=== PATIENT | female | born 1975 | race Two or more races ===

== ENCOUNTER 2025-10-05 10:55 | Emergency (ER) | payer OTHER ==
[2025-10-05 11:53] VITALS: BP 96/57; PULSE 78; RESP 20; TEMP 97.4; O2SAT 96
--- NOTE | 2025-10-05 12:04 | ED.PDOC ---
Back pain HPI HPI Comments 50 y/o F, presents to the ED for CC of back pain. Patient states she has been experiencing left-lower back pain onset, x2days ago. Patient reports, pain to radiate down her left thigh and left leg. Patient denies any trauma, injury, or fall. No other symptoms or modifying factors are present at this time. Chief Complaint: Back Pain Time Seen by MD: 11:50 Reviewed Notes: Nurses Notes, Medications, Allergies Allergies: Coded Allergies: NO KNOWN ALLERGIES (Unverified , 10/05/25) Home Meds Active Scripts Diclofenac Potassium (Diclofenac Potassium) 50 Mg Tab, 1 TAB PO TIDP for 10 Days, #30 TAB Prov:GUEVARA LISA MD 10/05/25 Cyclobenzaprine Hcl (Cyclobenzaprine Hcl) 10 Mg Tab, 10 MG PO TID for 10 Days, #30 TAB Prov:GUEVARA LISA MD 10/05/25 Information Source: Patient Mode of Arrival: Ambulatory Timing: Days Duration: Since onset Location of Back pain: (L) Lower back Radiates to: Anterior: (L) Thigh Severity: Moderate Prehospital treatment: None Onset: Spontaneous History of: None Associated signs and symptoms: None Past Medical History PAST MEDICAL HISTORY: Denies Surgical History: Denies all surgeries TYPE COPY EXAMINER History: Denies all TYPE COPY EXAMINER Hx Family History Family History: Unknown Social History Smoker: Non-Smoker Alcohol: Denies ETOH Use Drugs: Denies Drug Use Lives In: Home Constitutional: denies: chills, diaphoresis, fatigue, fever, malaise, sweats, weakness, others EENTM: denies: blurred vision, double vision, ear bleeding, ear discharge, ear drainage, ear pain, ear ringing, eye pain, eye redness, hearing loss, mouth pain, mouth swelling, nasal discharge, nose bleeding, nose congestion, nose pain, photophobia, tearing, throat pain, throat swelling, voice changes, others Respiratory: denies: cough, hemoptysis, orthopnea, SOB at rest, shortness of breath, SOB with excertion, stridor, wheezing, others Cardiovascular: denies: chest pain, dizzy spells, diaphoresis, Dyspnea on exertion, edema, irregular heart beat, left arm pain, lightheadedness, palpitations, PND, syncope, others Gastrointestinal: denies: abdomen distended, abdominal pain, blood streaked bowels, constipated, diarrhea, dysphagia, difficulty swallowing, hematemesis, melena, nausea, poor appetite, poor fluid intake, rectal bleeding, rectal pain, vomiting, others Genitourinary: denies: abnormal vagina bleeding, burning, dyspareunia, dysuria, flank pain, frequency, hematuria, incontinence, pain, , vagina disc harge, urgency, others Neurological: denies: dizziness, fainting, headache, left sided numbness, left sided weakness, numbness, paresthesia, pre-existing deficit, right sided numbness, right sided weakness, seizure, speech problems, tingling, tremors, weakness, others Musculoskeletal: reports: back pain; denies: gout, joint pain, joint swelling, muscle pain, muscle stiffness, neck pain, others Integumetry: denies: bruises, change in color, change in hair/nails, dryness, laceration, lesions, lumps, rash, wounds, others Allergic/Immunocompromised: denies: Difficulty Healing, Frequent Infections, Hives, Itching, others Hematologic/Lymphatic: denies: anemia, blood clots, easy bleeding, easy bruising, swollen glands, others Endocrine: denies: excessive hunger, excessive sweating, excessive thirst, excessive urination, flushing, intolerance to cold, intolerance to heat, unexplained weight gain, unexplained weight loss, others Psychiatric: denies: anxiety, bipolar disorder, depression, hopeless, panic disorder, schizophrenia, sleepless, suicidal, others All Other Systems: Reviewed and Negative Physical Exam General Appearance: Moderate Distress, Obese HEENT: Normal ENT Inspection, PERRL/EOMI Neck: Full Range of Motion, Non-Tender, Normal, Normal Inspection Respiratory: Chest Non-Tender, Lungs Clear, No Accessory Muscle Use, No Respiratory Distress, Normal Breath Sounds Cardiovascular: No Edema, No JVD, No Murmur, No Gallop, Normal Peripheral Pulses, Regular Rate/Rhythm Breast Exam: Deferred Gastrointestinal: No Organomegaly, Non Tender, No Pulsatile Mass, Normal Bowel Sounds, Soft Genitalia: Deferred Pelvic: Deferred Rectal: Deferred Extremities: No calf tenderness, Normal capillary refill, Normal inspection, Normal range of motion, Non-tender, No pedal edema, Other (Leg straight leg elevation positive) Neurologic: Alert, chicken picker II-XII nml as Tested, No Motor Deficits, Normal Affect, Normal Mood, No Sensory Deficits Cerebellar Function: Normal Reflexes: Normal Skin: Dry, Normal Color, Warm Peripheral Pulses: 1+ carotid (R), 1+ carotid (L) Lymphatic: No Adenopathy Was a procedure done? Was a procedure done?: No Back Pain Differential Dx Differential Diagnosis: DJD, Musculoskeletal Pain, Strain X-Ray, Labs, Meds, VS Vital Signs Date Time Temp Pulse Resp B/P (MAP) Pulse Ox O2 Delivery O2 Flow Rate FiO2 10/05/25 11:53 97.4 78 20 96/57 (70) 96 97.4 10/05/25 10:59 97.2 83 18 97/63 97 97.2 Current Medications Medications (Trade) Dose Ordered Sig/Gallo Route Start Time Stop Time Status Last Admin Ketorolac Tromethamine (Toradol Injection) 60 mg ONCE ONCE IM 10/05/25 13:45 10/05/25 13:46 DC 10/05/25 13:49 X-Ray, Labs, Meds, VS Comment Course in a fast track even full patient complaining of back pain with the radiation to the left leg for two days patient denies history of back pain Patient we receive toradol IM then be discharged home to hold off for their PCP Time of 1ST Reevaluation: 12:20 Reevaluation 1ST: Unchanged Time of 2ND Reevaluation: 13:35 Reevaluation 2ND: Unchanged Consultation: PCP Patient Education/Counseling: Diagnosis, Treatment, Prognosis, Need For Follow Up Family Education/Counseling: Diagnosis, Treatment, Prognosis, Need For Follow Up, No Family Present SEPSIS Sepsis Screen Date sepsis recognized/suspect: Oct 05, 2025 Time Sepsis recognized/suspect: 1157 Recent Procedure: No On Antibiotic Therapy: No Respiratory Rate >20: No Heart Rate >90: No Temp<36 C (96.8 F) or >38.3 C: No SBP <90 or MAP <65 mmHG: No New Acute Mental Status Change: No Is the patient on CPAP, BIPAP,: No Vital Signs Date Time Temp Pulse Resp B/P (MAP) Pulse Ox O2 Delivery O2 Flow Rate FiO2 10/05/25 11:53 97.4 78 20 96/57 (70) 96 97.4 10/05/25 10:59 97.2 83 18 97/63 97 97.2 Medications Medications Dose Ordered Sig/Gallo Route Start Time Stop Time Status Last Admin Dose Admin Ketorolac Tromethamine 60 mg ONCE ONCE IM 10/05/25 13:45 10/05/25 13:46 DC 10/05/25 13:49 Departure 1 Departure Time of Disposition: 13:36 Impression: Primary Impression: Lumbar radiculopathy Additional Impression: Musculoskeletal pain Disposition: 01 HOME / SELF CARE / HOMELESS Condition: Fair Additional Instructions: Local heat and follow up with her PCP e-Prescriptions Diclofenac Potassium (Diclofenac Potassium) 50 Mg Tab 1 TAB PO TIDP for 10 Days, #30 TAB Prov: GUEVARA LISA MD 10/05/25 Cyclobenzaprine Hcl (Cyclobenzaprine Hcl) 10 Mg Tab 10 MG PO TID for 10 Days, #30 TAB Prov: GUEVARA LISA MD 10/05/25 Discharged With: Self Critical Care Note Critical Care Time?: No Stability Stability form required: No Heart Score Heart Score: Heart Score Response (Comments) Value History N/A 0 EKG N/A 0 Age 45-64 1 Risk Factors No known risk factors 0 Troponin N/A 0 Total 1 I personally scribed for GUEVARA LISA MD ([email or web address]) on 10/05/25 at 12:04. Electronically submitted by Cristy Melo ([email or web address]). GUEVARA LISA MD Oct 05, 2025 12:04
[2025-10-05] MEDS ORDERED: CYCL-839 PO (13:40)
[2025-10-05] MEDS ORDERED: DICL50TA2 PO (13:40)
[2025-10-05] MEDS: KETOROLAC TROMETH 60MG/2ML VIAL IM ONE (13:49)
== END 2025-10-05 14:54 | disposition home or self-care (01) ==
LOC: ER 10:55
DX: M54.16 Radiculopathy, lumbar region (principal); M79.18 Myalgia, other site; Z79.899 Other long term (current) drug therapy
CPT/HCPCS: 96372; 99283; J1885

== ENCOUNTER 2025-10-06 13:28 | Emergency (ER) | payer OTHER ==
[~2025-10-06] VITALS: Ht 165.1 cm; Wt 104.8 kg
[~2025-10-06 13:28] MED LIST: CYCL-839 PO; DICL50TA2 PO
--- NOTE | 2025-10-06 14:43 | ED.PDOC ---
Back pain HPI HPI Comments This is a 50 year old female presenting to the ED with chief complaint of back pain. Patient reports that she has been experiencing persistent lower back pain that radiates down her left leg for the past 3 days. Patient relays that she was seen yesterday and the medication she had been provided in the ED helped with her pain greatly. Patient states she is requesting the same medication today. Patient notes she has history of chronic lower back pain. Patient denies any numbness, weakness, fall, or injury. Chief Complaint: Back Pain Time Seen by MD: 14:41 Reviewed Notes: Nurses Notes, Medications, Allergies Allergies: Coded Allergies: NO KNOWN ALLERGIES (Unverified , 10/05/25) Home Meds Active Scripts Diclofenac Potassium (Diclofenac Potassium) 50 Mg Tab, 1 TAB PO TIDP for 10 Days, #30 TAB Prov:GUEVARA LISA MD 10/05/25 Cyclobenzaprine Hcl (Cyclobenzaprine Hcl) 10 Mg Tab, 10 MG PO TID for 10 Days, #30 TAB Prov:GUEVARA LISA MD 10/05/25 Information Source: Patient Mode of Arrival: Ambulatory Timing: Days Duration: Since onset Location of Back pain: (B) Lower back Radiates to: Posterior: (L) Thigh Severity: Moderate Prehospital treatment: None Quality: Aching Onset: Spontaneous History of: Chronic Back Pain Past Medical History Past Medical History (Other): Chronic back pain Surgical History: Denies all surgeries BIOLOGY INTERNSHIP History: Denies all BIOLOGY INTERNSHIP Hx Family History Family History: Reviewed,noncontributory to illness, Unknown Social History Smoker: Non-Smoker Alcohol: Denies ETOH Use Drugs: Denies Drug Use Lives In: Home Constitutional: denies: chills, diaphoresis, fatigue, fever, malaise, sweats, weakness, others EENTM: denies: blurred vision, double vision, ear bleeding, ear discharge, ear drainage, ear pain, ear ringing, eye pain, eye redness, hearing loss, mouth pain, mouth swelling, nasal discharge, nose bleeding, nose congestion, nose pain, photophobia, tearing, throat pain, throat swelling, voice changes, others Respiratory: denies: cough, hemoptysis, orthopnea, SOB at rest, shortness of breath, SOB with excertion, stridor, wheezing, others Cardiovascular: denies: chest pain, dizzy spells, diaphoresis, Dyspnea on exertion, edema, irregular heart beat, left arm pain, lightheadedness, palpitations, PND, syncope, others Gastrointestinal: denies: abdomen distended, abdominal pain, blood streaked bowels, constipated, diarrhea, dysphagia, difficulty swallowing, hematemesis, melena, nausea, poor appetite, poor fluid intake, rectal bleeding, rectal pain, vomiting, others Genitourinary: denies: abnormal vagina bleeding, burning, dyspareunia, dysuria, flank pain, frequency, hematuria, incontinence, pain, , vagina discha rge, urgency, others Neurological: denies: dizziness, fainting, headache, left sided numbness, left sided weakness, numbness, paresthesia, pre-existing deficit, right sided numbness, right sided weakness, seizure, speech problems, tingling, tremors, weakness, others Musculoskeletal: reports: back pain; denies: gout, joint pain, joint swelling, muscle pain, muscle stiffness, neck pain, others Integumetry: denies: bruises, change in color, change in hair/nails, dryness, laceration, lesions, lumps, rash, wounds, others Allergic/Immunocompromised: denies: Difficulty Healing, Frequent Infections, Hives, Itching, others Hematologic/Lymphatic: denies: anemia, blood clots, easy bleeding, easy bruising, swollen glands, others Endocrine: denies: excessive hunger, excessive sweating, excessive thirst, excessive urination, flushing, intolerance to cold, intolerance to heat, unexplained weight gain, unexplained weight loss, others Psychiatric: denies: anxiety, bipolar disorder, depression, hopeless, panic disorder, schizophrenia, sleepless, suicidal, others All Other Systems: Reviewed and Negative Physical Exam General Appearance: Moderate Distress, Normal HEENT: Normal ENT Inspection, Pharynx Normal, TMs Normal Neck: Full Range of Motion, Non-Tender, Normal, Normal Inspection Respiratory: Chest Non-Tender, Lungs Clear, No Accessory Muscle Use, No Respiratory Distress, Normal Breath Sounds Cardiovascular: No Edema, No JVD, No Murmur, No Gallop, Normal Peripheral Pulses, Regular Rate/Rhythm Breast Exam: Deferred Gastrointestinal: No Organomegaly, Non Tender, No Pulsatile Mass, Normal Bowel Sounds, Soft Genitalia: Deferred Pelvic: Deferred Rectal: Deferred Extremities: No calf tenderness, Normal capillary refill, Normal inspection, Normal range of motion, Non-tender, No pedal edema Musculoskeletal : Apperance: Normal Neurologic: Alert, 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 Was a procedure done?: No Back Pain Differential Dx Differential Diagnosis: Musculoskeletal Pain X-Ray, Labs, Meds, VS Vital Signs Date Time Temp Pulse Resp B/P (MAP) Pulse Ox O2 Delivery O2 Flow Rate FiO2 10/06/25 13:32 97.8 96 16 105/72 97.8 Patient alert. Came in because of back pain. Was seen here yesterday for the same symptom. Vitals stable. Ambulating without difficulty. Was given Toradol. Explained to the patient. Was told to follow up with her primary care physician. Was told to come back if there is any problem. Time of 1ST Reevaluation: 15:40 Reevaluation 1ST: Improved Patient Education/Counseling: Diagnosis, Treatment Family Education/Counseling: No Family Present SEPSIS Sepsis Screen Date sepsis recognized/suspect: Oct 06, 2025 Time Sepsis recognized/suspect: 1332 Recent Procedure: No On Antibiotic Therapy: No Respiratory Rate >20: No Heart Rate >90: No Temp<36 C (96.8 F) or >38.3 C: No SBP <90 or MAP <65 mmHG: No New Acute Mental Status Change: No Is the patient on CPAP, BIPAP,: No Vital Signs Date Time Temp Pulse Resp B/P (MAP) Pulse Ox O2 Delivery O2 Flow Rate FiO2 10/06/25 13:32 97.8 96 16 105/72 97.8 Departure 1 Departure Time of Disposition: 15:17 Impression: Primary Impression: Musculoskeletal pain Additional Impression: Lumbar sprain Qualified Codes: S33.5XXS - Sprain of ligaments of lumbar spine, sequela Disposition: HOME / SELF CARE / HOMELESS Condition: Good Discharged With: Self Critical Care Note Critical Care Time?: No Stability Stability form required: No Heart Score Heart Score: Heart Score Response (Comments) Value History N/A 0 EKG N/A 0 Age N/A 0 Risk Factors N/A 0 Troponin N/A 0 Total 0 I personally scribed for JERAD NAIK MD ([email or web address]) on 10/06/25 at 14:43. Electronically submitted by Juan M Yepez ([email or web address]). JERAD NAIK MD Oct 06, 2025 14:43
[2025-10-06 16:48] VITALS: BP 106/65; TEMP 97.9
[2025-10-06 17:00] VITALS: PULSE 68; RESP 17; O2SAT 97
[2025-10-06] MEDS: KETOROLAC TROMETH 60MG/2ML VIAL IM ONE (17:00)
[2025-10-07] MEDS ORDERED: ACET-6 PO (12:43)
[2025-10-07] MEDS ORDERED: IBUP-1456 PO (12:43)
== END 2025-10-06 17:32 | disposition home or self-care (01) ==
LOC: ER 13:28
DX: S33.5XXA Sprain of ligaments of lumbar spine, initial encounter (principal); G89.29 Other chronic pain; Z79.899 Other long term (current) drug therapy; X58.XXXA Exposure to other specified factors, initial encounter; Y93.89 Activity, other specified; Y92.89 Other specified places as the place of occurrence of the external cause; Y99.8 Other external cause status
CPT/HCPCS: 96372; 99283; J1885

== ENCOUNTER 2025-10-07 11:51 | Emergency (ER) | payer OTHER ==
[~2025-10-07] VITALS: Ht 165.1 cm; Wt 105.9 kg
--- NOTE | 2025-10-07 12:25 | ED.PDOC ---
Back pain HPI HPI Comments This is a 50 year old female presenting to the ED with chief complaint of back pain. Patient reports that she has been experiencing lower back pain for the past 6 days due to a lot of strenuous activity and heavy lifting. Patient relays that she was seen in the ED for the past 2 days for Toradol injections, but notes her pain comes back a few hours later. Patient denies any numbness, weakness, fall, or injury. Chief Complaint: Back Pain Time Seen by MD: 12:24 Reviewed Notes: Nurses Notes, Medications, Allergies Allergies: Coded Allergies: NO KNOWN ALLERGIES (Unverified , 10/05/25) Home Meds Active Scripts Ibuprofen (Ibuprofen) 800 Mg Tab, 1 TAB PO TID PRN for 10 Days, #30 TAB 1 Refill Prov:CHEYANNE COONEY MD 10/07/25 Acetaminophen (Acetaminophen Extra Stren) 500 Mg Tab, 1000 MG PO TID PRN MDD 4000mg for 10 Days, #60 TAB Prov:CHEYANNE COONEY MD 10/07/25 Diclofenac Potassium (Diclofenac Potassium) 50 Mg Tab, 1 TAB PO TIDP for 10 Days, #30 TAB Prov:GUEVARA LISA MD 10/05/25 Cyclobenzaprine Hcl (Cyclobenzaprine Hcl) 10 Mg Tab, 10 MG PO TID for 10 Days, #30 TAB Prov:GUEVARA LISA MD 10/05/25 Information Source: Patient Mode of Arrival: Ambulatory Timing: Days Duration: Since onset Location of Back pain: (B) Lower back Severity: Moderate Prehospital treatment: None Quality: Aching Onset: Spontaneous History of: Chronic Back Pain Modifying Factors: Movement Past Medical History Past Medical History (Other): Chronic back pain Surgical History: Denies all surgeries CERTIFIED REHABILITATION COUNSELOR History: Denies all CERTIFIED REHABILITATION COUNSELOR Hx Family History Family History: Reviewed,noncontributory to illness, Unknown Social History Smoker: Non-Smoker Alcohol: Denies ETOH Use Drugs: Denies Drug Use Lives In: Home Constitutional: denies: chills, diaphoresis, fatigue, fever, malaise, sweats, weakness, others EENTM: denies: blurred vision, double vision, ear bleeding, ear discharge, ear drainage, ear pain, ear ringing, eye pain, eye redness, hearing loss, mouth pain, mouth swelling, nasal discharge, nose bleeding, nose congestion, nose pain, photophobia, tearing, throat pain, throat swelling, voice changes, others Respiratory: denies: cough, hemoptysis, orthopnea, SOB at rest, shortness of breath, SOB with excertion, stridor, wheezing, others Cardiovascular: denies: chest pain, dizzy spells, diaphoresis, Dyspnea on exertion, edema, irregular heart beat, left arm pain, lightheadedness, palpitations, PND, syncope, others Gastrointestinal: denies: abdomen distended, abdominal pain, blood streaked bowels, constipated, diarrhea, dysphagia, difficulty swallowing, hematemesis, melena, nausea, poor appetite, poor fluid intake, rectal bleeding, rectal pain, vomiting, others Genitourinary: denies: abnormal vagina bleeding, burning, dyspareunia, dysuria, flank pain, frequency, hematuria, incontinence, pain, , vagina discharge, urgency, others Neurological: denies: dizziness, fainting, headache, left sided numbness, left sided weakness, numbness, paresthesia, pre-existing deficit, right sided numbness, right sided weakness, seizure, speech problems, tingling, tremors, weakness, others Musculoskeletal: reports: back pain; denies: gout, joint pain, joint swelling, muscle pain, muscle stiffness, neck pain, others Integumetry: denies: bruises, change in color, change in hair/nails, dryness, laceration, lesions, lumps, rash, wounds, others Allergic/Immunocompromised: denies: Difficulty Healing, Frequent Infections, Hives, Itching, others Hematologic/Lymphatic: denies: anemia, blood clots, easy bleeding, easy bru ising, swollen glands, others Endocrine: denies: excessive hunger, excessive sweating, excessive thirst, e xcessive urination, flushing, intolerance to cold, intolerance to heat, unexplained weight gain, unexplained weight loss, others Psychiatric: denies: anxiety, bipolar disorder, depression, hopeless, panic disorder, schizophrenia, sleepless, suicidal, others All Other Systems: Reviewed and Negative Physical Exam General Appearance: No Apparent Distress, Normal HEENT: Normal ENT Inspection, Pharynx Normal, TMs Normal Neck: Full Range of Motion, Non-Tender, Normal, Normal Inspection Respiratory: Chest Non-Tender, Lungs Clear, No Accessory Muscle Use, No Respiratory Distress, Normal Breath Sounds Cardiovascular: No Edema, No JVD, No Murmur, No Gallop, Normal Peripheral Pulses, Regular Rate/Rhythm Breast Exam: Deferred Gastrointestinal: No Organomegaly, Non Tender, No Pulsatile Mass, Normal Bowel Sounds, Soft Genitalia: Deferred Pelvic: Deferred Rectal: Deferred Extremities: No calf tenderness, Normal capillary refill, Normal inspection, Normal range of motion, Non-tender, No pedal edema Musculoskeletal : Location: Bilateral Extremity Location: Back Apperance: Tenderness (Bilateral lower back tenderness) Neurologic: Alert, 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 Was a procedure done?: No Back Pain Differential Dx Differential Diagnosis: Musculoskeletal Pain X-Ray, Labs, Meds, VS Vital Signs Date Time Temp Pulse Resp B/P (MAP) Pulse Ox O2 Delivery O2 Flow Rate FiO2 10/07/25 12:37 98.5 10/07/25 11:54 97.3 79 15 103/42 97 97.3 Current Medications Medications (Trade) Dose Ordered Sig/Gallo Route Start Time Stop Time Status Last Admin Acetaminophen (Tylenol Tablet Or Capsule) 1,000 mg ONCE ONCE PO 10/07/25 12:15 10/07/25 12:16 DC 10/07/25 12:37 Ketorolac Tromethamine (Toradol Injection) 30 mg ONCE ONCE IM 10/07/25 12:15 10/07/25 12:16 DC 10/07/25 12:38 Lidocaine (Lidoderm 5% Topical Patch) 1 patch ONCE ONCE TOP 10/07/25 12:15 10/07/25 12:16 DC 10/07/25 12:37 Time of 1ST Reevaluation: 13:23 Reevaluation 1ST: Improved Patient Education/Counseling: Diagnosis, Treatment Family Education/Counseling: No Family Present SEPSIS Sepsis Screen Date sepsis recognized/suspect: Oct 07, 2025 Time Sepsis recognized/suspect: 1156 Recent Procedure: No On Antibiotic Therapy: No Respiratory Rate >20: No Heart Rate >90: No Temp<36 C (96.8 F) or >38.3 C: No SBP <90 or MAP <65 mmHG: No New Acute Mental Status Change: No Is the patient on CPAP, BIPAP,: No Vital Signs Date Time Temp Pulse Resp B/P (MAP) Pulse Ox O2 Delivery O2 Flow Rate FiO2 10/07/25 12:37 98.5 10/07/25 11:54 97.3 79 15 103/42 97 97.3 Medications Medications Dose Ordered Sig/Gallo Route Start Time Stop Time Status Last Admin Dose Admin Acetaminophen 1,000 mg ONCE ONCE PO 10/07/25 12:15 10/07/25 12:16 DC 10/07/25 12:37 Ketorolac Tromethamine 30 mg ONCE ONCE IM 10/07/25 12:15 10/07/25 12:16 DC 10/07/25 12:38 Lidocaine 1 patch ONCE ONCE TOP 10/07/25 12:15 10/07/25 12:16 DC 10/07/25 12:37 Departure 1 Departure Time of Disposition: 12:28 (50-year-old female presenting for evaluation of back pain that has been ongoing over the past week. Patient with no new trauma, injury, does not require any advanced imaging of the back as I do not suspect underlying fractures. Patient is ambulating steadily here with no new numbness, weakness of extremities, no signs concerning for acute lumbar spine cord compromise. Patient was treated with IM Toradol, oral Tylenol and topical lidocaine patch. Feeling improved after interventions. She is otherwise recommended to follow up with your outpatient primary care doctor given that recurrent back pain. Advised to take NSAIDs with the muscle relaxants that were previously prescribed to her. Will be given a prescription for tylenol and ibuprofen.) Impression: Primary Impression: Low back pain Additional Impression: Lumbar paraspinal muscle spasm Disposition: HOME / SELF CARE / HOMELESS Condition: Stable Additional Instructions: Please take Tylenol and ibuprofen 3 times per day over the upcoming days. You may also take muscle relaxant that was prescribed to you. You were also given a prescription for lidocaine patches. Please follow up with your primary care doctor for further management of your recurrent back pain. e-Prescriptions Ibuprofen (Ibuprofen) 800 Mg Tab 1 TAB PO TID PRN for 10 Days, #30 TAB 1 Refill Prov: CHEYANNE COONEY MD 10/07/25 Acetaminophen (Acetaminophen Extra Stren) 500 Mg Tab 1000 MG PO TID PRN MDD 4000mg for 10 Days, #60 TAB Prov: CHEYANNE COONEY MD 10/07/25 Discharged With: Self Critical Care Note Critical Care Time?: No Stability Stability form required: No Heart Score Heart Score: Heart Score Response (Comments) Value History N/A 0 EKG N/A 0 Age N/A 0 Risk Factors N/A 0 Troponin N/A 0 Total 0 I personally scribed for CHEYANNE COONEY MD ([email or web address]) on 10/07/25 at 12:25. Electronically submitted by Juan M Yepez ([email or web address]). CHEYANNE COONEY MD Oct 07, 2025 12:25
[2025-10-07] MEDS: ACETAMINOPHEN 500 MG TAB or CAP PO ONE (12:37)
[2025-10-07] MEDS: LIDOCAINE 5% TOPICAL PATCH TOP ONE (12:37)
[2025-10-07] MEDS: KETOROLAC TROMETH 60MG/2ML VIAL IM ONE (12:38)
[2025-10-07] MEDS ORDERED: ACET-6 PO (12:43)
[2025-10-07] MEDS ORDERED: IBUP-1456 PO (12:43)
[2025-10-07 12:48] VITALS: BP 101/46; PULSE 75; RESP 16; O2SAT 98
[2025-10-07 13:12] VITALS: TEMP 98.1
== END 2025-10-07 13:16 | disposition home or self-care (01) ==
LOC: ER 11:51
DX: M54.50 Low back pain, unspecified (principal); M62.830 Muscle spasm of back; Z79.899 Other long term (current) drug therapy
CPT/HCPCS: 96372; 99283; J1885